=== PATIENT | female | born 1990 | race Asian ===

== ENCOUNTER 2018-11-01 05:36 | Inpatient (IN) | payer MEDICAID, OTHER ==
[2018-11-01 08:02] LABS: ADD UMIC YES; UR ASCORBIC ACID NEGATIVE (NEGATIVE); UR BILIRUBIN (Dip) NEGATIVE (NEGATIVE); UR BLOOD (Dip) 1+ mg/dL (NEGATIVE); UR CLARITY SLIGHTLY CLOUDY (CLEAR); UR COLOR YELLOW (YELLOW); UR GLUCOSE (Dip) 3+ mg/dL (NEGATIVE); UR KETONES (Dip) 2+ mg/dL (NEGATIVE); UR LEUKOCYTE ESTERASE (Dip) NEGATIVE Leu/ul (NEGATIVE); UR MUCUS FEW /HPF (NONE SEEN); UR NITRITE (Dip) NEGATIVE (NEGATIVE); UR RBC 1 /HPF (0-5); UR SPECIFIC GRAVITY (Dip) 1.026 (1.003-1.030); UR SQUAMOUS EPITHELIAL CELL FEW /HPF (FEW); UR TOTAL PROTEIN (Dip) 3+ mg/dl (NEGATIVE); UR UROBILINOGEN (Dip) NEGATIVE (NEGATIVE); UR WBC 2 /HPF (0-5)
[2018-11-01] MEDS: morphine 4 MG/ML VIAL IV ×2 (08:14→08:41)
[2018-11-01] MEDS: SODIUM CHLORIDE 0.9% 1L BAG IV* (08:14)
[2018-11-01] MEDS: ONDANSETRON 4 MG INJ IV ×2 (08:14→14:55)
[2018-11-01 08:31] LABS: MODE ROOM AIR; MetHgb Venous 0.1 %; Sample Type Blood venous; Site VENOUS LINE; Venous Fraction OxyHgb 63.1 %; Venous Oxygen Sat 63.8 mmHG (55.0-75.0); Venous Total Hemglobin 15.9 g/dl
[2018-11-01 08:35] LABS: ADD MAN DIFF? NO
[2018-11-01 08:38] LABS: WHITE BLOOD COUNT 25.8 10^3/ul (4.8-10.8)
[2018-11-01 08:38] LABS: ABNORMAL IP MESSAGE 1; BASOPHIL # 0.1 10^3/ul (0.0-0.1); BASOPHILS % 0.3 % (0.0-2.0); HEMATOCRIT 45.1 % (37.0-47.0); HEMOGLOBIN 14.2 g/dl (12.0-16.0); LYMPHOCYTES # 1.2 10^3/ul (0.8-2.9); LYMPHOCYTES % 4.5 % (15.0-51.0); MEAN CORPUSCULAR HEMOGLOBIN 27.9 pg (29.0-33.0); MEAN CORPUSCULAR HGB CONC 31.5 g/dl (32.0-37.0); MEAN CORPUSCULAR VOLUME 88.6 fl (82.0-101.0); MEAN PLATELET VOLUME 9.9 fl (7.4-10.4); MONOCYTE # 1.4 10^3/ul (0.3-0.9); MONOCYTES % 5.3 % (0.0-11.0); NEUTROPHIL # 22.7 10^3/ul (1.6-7.5); NEUTROPHILS % 87.8 % (39.0-77.0); PLATELET COUNT 426 10^3/UL (140-415); RED BLOOD COUNT 5.09 10^6/ul (4.20-5.40); RED CELL DISTRIBUTION WIDTH 11.7 % (11.5-14.5)
[2018-11-01 08:57] LABS: ALANINE AMINOTRANSFERASE 15 IU/L (13-69); ALBUMIN 4.8 g/dl (3.3-4.9); ALBUMIN/GLOBULIN RATIO 0.97; ALKALINE PHOSPHATASE 119 IU/L (42-121); ANION GAP 23 (5-13); ASPARTATE AMINO TRANSFERASE 13 IU/L (15-46); BILIRUBIN,INDIRECT 0.3 mg/dl (0-1.1); BILIRUBIN,TOTAL 0.3 mg/dl (0.2-1.3); BLOOD UREA NITROGEN 10 mg/dl (7-20); CALCIUM 9.6 mg/dl (8.4-10.2); CHLORIDE 105 mmol/L (97-110); CREATININE 0.69 mg/dl (0.44-1.00); Estimated GFR > 60 mL/min (>60); GLUCOSE 390 mg/dl (70-220); INR 1.01; MAGNESIUM 2.1 mg/dl (1.7-2.5); PHOSPHORUS 3.2 mg/dl (2.5-4.9); POTASSIUM 5.4 mmol/L (3.5-5.1); PROTIME 13.4 Sec (11.9-14.9); SODIUM 135 mmol/L (135-144); TOTAL PROTEIN 9.7 g/dl (6.1-8.1)
[2018-11-01 08:58] LABS: POSITIVE DIFF @See below
[2018-11-01] MEDS: LIDOCAINE 1% (MPF) 5 ML VIAL SC (09:00)
[2018-11-01 09:07] LABS: TROPONIN-I < 0.012 ng/ml (0.000-0.120)
[2018-11-01 09:09] LABS: CARBON DIOXIDE 7 mmol/L (21-31)
[2018-11-01] MEDS ORDERED: DEXTROSE 10%/0.45% NACL 1,000 ML IV (09:15)
[2018-11-01] MEDS ORDERED: D10/0.45% NACL + KCL 30 MEQ 1,000 ML IV (09:15)
[2018-11-01] MEDS ORDERED: NS + KCL 40 MEQ 1,000 ML IV ×2 (09:15→10:52)
[2018-11-01] MEDS ORDERED: D10/0.45% NACL + KCL 40 MEQ 1,000 ML IV ×2 (09:15→10:52)
[2018-11-01] MEDS: IOHEXOL 300MG/ML 150 ML BTL (09:18)
[2018-11-01] MEDS: SOD CHLORIDE 0.9% 0 ML (09:18)
[2018-11-01] MEDS ORDERED: DEXTROSE 50% 50 ML SYRINGE IV ×4 (09:30→11:00)
[2018-11-01 09:46] LABS: HEMOGLOBIN A1C 10.1 % (0-5.9)
[2018-11-01] MEDS: CEFEPIME 1GM/50 ML (PMX) 50 ML IVPB (10:10)
[2018-11-01] MEDS ORDERED: ONDANSETRON 4 MG INJ IV (10:30)
[2018-11-01] MEDS ORDERED: ACETAMINOPHEN 325 MG TAB PO (10:30)
[2018-11-01] MEDS ORDERED: SOD CHLORIDE 0.9% 1,000 ML IV (10:52)
[2018-11-01] MEDS ORDERED: NACL 0.9% 3 ML SYG IV (11:00)
[2018-11-01] MEDS: ACCU-CHEK XX ×13 (11:00→23:00)
[2018-11-01] MEDS ORDERED: VANCOMYCIN IV PER PHARMACY XX (11:30)
[2018-11-01 11:45] LABS: MODE ROOM AIR; MetHgb Venous 0.3 %; Sample Type Blood venous; Site VENOUS LINE; Venous COHb 1.3 %; Venous Oxygen Sat 91.5 mmHG (55.0-75.0); Venous Total Hemglobin 15.3 g/dl
[2018-11-01 12:22] LABS: LACTIC ACID 0.8 mmol/L (0.5-2.0)
[2018-11-01 12:23] LABS: ANION GAP 22 (5-13); BLOOD UREA NITROGEN 10 mg/dl (7-20); CALCIUM 9.1 mg/dl (8.4-10.2); CHLORIDE 109 mmol/L (97-110); CREATININE 0.51 mg/dl (0.44-1.00); Estimated GFR > 60 mL/min (>60); GLUCOSE 359 mg/dl (70-220); MAGNESIUM 2.1 mg/dl (1.7-2.5); POTASSIUM 4.8 mmol/L (3.5-5.1); SODIUM 138 mmol/L (135-144)
[2018-11-01 12:26] LABS: CARBON DIOXIDE 7 mmol/L (21-31)
[2018-11-01 13:17] LABS: ADD UMIC YES; UR ASCORBIC ACID NEGATIVE (NEGATIVE); UR BILIRUBIN (Dip) NEGATIVE (NEGATIVE); UR BLOOD (Dip) 1+ mg/dL (NEGATIVE); UR CLARITY CLEAR (CLEAR); UR COLOR STRAW (YELLOW); UR GLUCOSE (Dip) 3+ mg/dL (NEGATIVE); UR KETONES (Dip) 2+ mg/dL (NEGATIVE); UR LEUKOCYTE ESTERASE (Dip) NEGATIVE Leu/ul (NEGATIVE); UR MUCUS FEW /HPF (NONE SEEN); UR NITRITE (Dip) NEGATIVE (NEGATIVE); UR RBC 1 /HPF (0-5); UR TOTAL PROTEIN (Dip) 2+ mg/dl (NEGATIVE); UR UROBILINOGEN (Dip) NEGATIVE (NEGATIVE); UR WBC 0 /HPF (0-5)
[2018-11-01] MEDS: LACTATED RINGER'S 900 ML IV (13:46)
[2018-11-01] MEDS: VANCOMYCIN 1 GM (PMX) 250 ML IVPB (13:46)
[2018-11-01 13:57] LABS: MODE ROOM AIR; MetHgb Venous 0.3 %; Sample Type Blood venous; Site VENOUS LINE; Venous COHb 0.8 %; Venous Fraction OxyHgb 81.2 %; Venous Oxygen Sat 82.1 mmHG (55.0-75.0); Venous Total Hemglobin 14.5 g/dl
[2018-11-01] MEDS: SOD CHLORIDE 0.9% 1,000 ML IV (14:03)
[2018-11-01] MEDS: NS + KCL 30 MEQ 1,000 ML IV ×2 (14:09→22:34)
[2018-11-01] MEDS: INSULIN REGULAR, HUMAN 100 UNIT in SOD CHLORIDE 0.9% 100 ML IV ×2 (14:13→22:35)
[2018-11-01] MEDS: morphine 2 MG INJ IV ×2 (14:55→21:26)
[2018-11-01] MEDS: DEXTROSE 10%/0.45% NACL 1,000 ML IV (15:22)
[2018-11-01] MEDS: PIPER-TAZO 3.375 GM IV (PMX) 100 ML IVPB ×2 (16:06→19:46)
[2018-11-01 18:36] LABS: MODE ROOM AIR; MetHgb Venous 0.3 %; Sample Type Blood venous; Site VENOUS LINE; Venous COHb 0.3 %; Venous Fraction OxyHgb 82.4 %; Venous Oxygen Sat 82.9 mmHG (55.0-75.0); Venous Total Hemglobin 12.2 g/dl
[2018-11-01 19:38] LABS: LACTIC ACID 0.7 mmol/L (0.5-2.0)
[2018-11-01] MEDS: VANCOMYCIN 750 MG (PMX) 250 ML IVPB (19:51)
[2018-11-01 20:30] LABS: ANION GAP 11 (5-13); BLOOD UREA NITROGEN 6 mg/dl (7-20); CALCIUM 8.2 mg/dl (8.4-10.2); CARBON DIOXIDE 14 mmol/L (21-31); CHLORIDE 112 mmol/L (97-110); CREATININE 0.35 mg/dl (0.44-1.00); Estimated GFR > 60 mL/min (>60); GLUCOSE 274 mg/dl (70-220); MAGNESIUM 1.8 mg/dl (1.7-2.5); PHOSPHORUS 0.9 mg/dl (2.5-4.9); POTASSIUM 3.8 mmol/L (3.5-5.1); SODIUM 137 mmol/L (135-144)
[2018-11-01 21:15] LABS: MODE ROOM AIR; MetHgb Venous 0.3 %; Sample Type Blood venous; Site VENOUS LINE; Venous COHb 0.6 %; Venous Fraction OxyHgb 78.2 %; Venous Oxygen Sat 78.9 mmHG (55.0-75.0); Venous Total Hemglobin 12.9 g/dl
[2018-11-01] MEDS: FAMOTIDINE 20 MG INJ IV (21:26)
[2018-11-01] MEDS: D10/0.45% NACL + KCL 30 MEQ 1,000 ML IV (22:34)
[2018-11-01] MEDS: INSULIN GLARGINE [LANTus] (100 UNITS/ML) SYG SC (23:09)
[2018-11-02 00:06] LABS: ANION GAP 7 (5-13); BLOOD UREA NITROGEN 5 mg/dl (7-20); CARBON DIOXIDE 16 mmol/L (21-31); CHLORIDE 113 mmol/L (97-110); CREATININE 0.35 mg/dl (0.44-1.00); Estimated GFR > 60 mL/min (>60); GLUCOSE 269 mg/dl (70-220); MAGNESIUM 1.8 mg/dl (1.7-2.5); PHOSPHORUS 0.7 mg/dl (2.5-4.9); POTASSIUM 3.6 mmol/L (3.5-5.1); SODIUM 136 mmol/L (135-144)
[2018-11-02] MEDS: VANCOMYCIN 1.25 GM/NS 250 ML 250 ML IVPB ×3 (00:52→16:10)
[2018-11-02] MEDS: HYDROCODONE/APAP (5/325) TAB PO ×3 (00:54→20:16)
[2018-11-02] MEDS: ACCU-CHEK XX ×2 (01:00)
[2018-11-02] MEDS ORDERED: GLUCOSE GEL 15 GRAM TUBE PO ×2 (03:00)
[2018-11-02] MEDS ORDERED: GLUCOSE GEL 15 GRAM TUBE BUCCAL (03:00)
[2018-11-02] MEDS ORDERED: GLUCAGON 1 MG INJ IM (03:00)
[2018-11-02] MEDS ORDERED: DEXTROSE 50% 50 ML SYRINGE IV ×2 (03:00)
[2018-11-02] MEDS: SOD CHLORIDE 0.9% 500 ML IV (03:49)
[2018-11-02] MEDS: SOD CHLORIDE 0.9% 1,000 ML IV ×3 (04:30→22:42)
[2018-11-02] MEDS: PIPER-TAZO 3.375 GM IV (PMX) 100 ML IVPB ×5 (05:40→23:01)
[2018-11-02 06:01] LABS: ADD MAN DIFF? NO
[2018-11-02 06:33] LABS: ABNORMAL IP MESSAGE 1; BASOPHILS % 0.2 % (0.0-2.0); EOSINOPHILS % 0.1 % (0.0-7.0); HEMATOCRIT 30.1 % (37.0-47.0); HEMOGLOBIN 9.8 g/dl (12.0-16.0); LYMPHOCYTES # 1.4 10^3/ul (0.8-2.9); MEAN CORPUSCULAR HEMOGLOBIN 28.6 pg (29.0-33.0); MEAN CORPUSCULAR HGB CONC 32.6 g/dl (32.0-37.0); MEAN CORPUSCULAR VOLUME 87.8 fl (82.0-101.0); MONOCYTE # 1.7 10^3/ul (0.3-0.9); MONOCYTES % 9.4 % (0.0-11.0); NEUTROPHIL # 14.6 10^3/ul (1.6-7.5); NEUTROPHILS % 81.7 % (39.0-77.0); PLATELET COUNT 308 10^3/UL (140-415); RED BLOOD COUNT 3.43 10^6/ul (4.20-5.40); RED CELL DISTRIBUTION WIDTH 11.9 % (11.5-14.5)
[2018-11-02 06:33] LABS: WHITE BLOOD COUNT 17.9 10^3/ul (4.8-10.8)
[2018-11-02 06:39] LABS: POSITIVE DIFF @See below
[2018-11-02 07:21] LABS: ALANINE AMINOTRANSFERASE 12 IU/L (13-69); ALBUMIN 3.2 g/dl (3.3-4.9); ALBUMIN/GLOBULIN RATIO 0.96; ALKALINE PHOSPHATASE 84 IU/L (42-121); ANION GAP 12 (5-13); ASPARTATE AMINO TRANSFERASE 17 IU/L (15-46); BILIRUBIN,INDIRECT 0.5 mg/dl (0-1.1); BILIRUBIN,TOTAL 0.5 mg/dl (0.2-1.3); BLOOD UREA NITROGEN 6 mg/dl (7-20); CARBON DIOXIDE 14 mmol/L (21-31); CHLORIDE 111 mmol/L (97-110); CREATININE 0.41 mg/dl (0.44-1.00); Estimated GFR > 60 mL/min (>60); GLUCOSE 297 mg/dl (70-220); MAGNESIUM 1.9 mg/dl (1.7-2.5); PHOSPHORUS 1.3 mg/dl (2.5-4.9); POTASSIUM 3.7 mmol/L (3.5-5.1); SODIUM 137 mmol/L (135-144); TOTAL PROTEIN 6.5 g/dl (6.1-8.1)
[2018-11-02] MEDS: INSULIN ASPART [NOVOLOG] 3 ML PEN SC ×7 (08:00→20:29)
[2018-11-02] MEDS ORDERED: INSULIN ASPART [NOVOLOG] 3 ML PEN SC (08:00)
[2018-11-02] MEDS: FAMOTIDINE 20 MG INJ IV (09:05)
[2018-11-02 10:44] LABS: ACETONE POSITIVE-MODERATE (NEGATIVE)
[2018-11-02 11:28] LABS: MODE ROOM AIR; MetHgb Venous 0.1 %; Sample Type Blood venous; Site VENOUS LINE; Venous COHb 0.6 %; Venous Fraction OxyHgb 93.2 %; Venous Oxygen Sat 93.9 mmHG (55.0-75.0); Venous Total Hemglobin 12.2 g/dl
[2018-11-02] MEDS: INSULIN GLARGINE [LANTus] (100 UNITS/ML) SYG SC ×2 (11:33→20:22)
[2018-11-02 11:54] LABS: ALBUMIN 3.2 g/dl (3.3-4.9); ANION GAP 8 (5-13); BLOOD UREA NITROGEN 7 mg/dl (7-20); CALCIUM 8.3 mg/dl (8.4-10.2); CARBON DIOXIDE 16 mmol/L (21-31); CHLORIDE 111 mmol/L (97-110); CREATININE 0.38 mg/dl (0.44-1.00); GLUCOSE 294 mg/dl (70-220); PHOSPHORUS 0.9 mg/dl (2.5-4.9); POTASSIUM 3.5 mmol/L (3.5-5.1); SODIUM 135 mmol/L (135-144)
[2018-11-02] MEDS: NEUTRA-PHOS 250 MG PACKET PO (13:08)
[2018-11-02] MEDS: morphine 2 MG INJ IV (14:15)
[2018-11-02 15:47] LABS: VANCOMYCIN,TROUGH 9.8 ug/ml (10.0-20.0)
[2018-11-02] MEDS: FAMOTIDINE 20 MG TAB PO (20:16)
[2018-11-02] MEDS: VANCOMYCIN 1.5 GM/NS 250 ML 250 ML IVPB (23:25)
[2018-11-03] MEDS: ACCU-CHEK XX (02:12)
[2018-11-03] MEDS: SOD CHLORIDE 0.9% 1,000 ML IV ×2 (03:00→07:46)
[2018-11-03] MEDS: PIPER-TAZO 3.375 GM IV (PMX) 100 ML IVPB ×4 (04:13→23:57)
[2018-11-03] MEDS: morphine 2 MG INJ IV (04:13)
[2018-11-03 06:53] LABS: UR KETONES (Dip) 1+ mg/dL (NEGATIVE)
[2018-11-03] MEDS: VANCOMYCIN 1.5 GM/NS 250 ML 250 ML IVPB ×2 (07:49→16:18)
[2018-11-03] MEDS: INSULIN ASPART [NOVOLOG] 3 ML PEN SC ×7 (08:09→20:56)
[2018-11-03] MEDS: FAMOTIDINE 20 MG TAB PO ×2 (08:40→20:42)
[2018-11-03 11:26] LABS: ADD MAN DIFF? NO
[2018-11-03 11:31] LABS: BASOPHILS % 0.3 % (0.0-2.0); EOSINOPHILS # 0.1 10^3/ul (0.0-0.5); EOSINOPHILS % 0.6 % (0.0-7.0); HEMATOCRIT 30.2 % (37.0-47.0); LYMPHOCYTES # 1.9 10^3/ul (0.8-2.9); LYMPHOCYTES % 16.3 % (15.0-51.0); MEAN CORPUSCULAR HEMOGLOBIN 28.2 pg (29.0-33.0); MEAN CORPUSCULAR HGB CONC 33.1 g/dl (32.0-37.0); MEAN CORPUSCULAR VOLUME 85.1 fl (82.0-101.0); MEAN PLATELET VOLUME 10.2 fl (7.4-10.4); MONOCYTE # 1.3 10^3/ul (0.3-0.9); MONOCYTES % 11.6 % (0.0-11.0); NEUTROPHIL # 8.2 10^3/ul (1.6-7.5); NEUTROPHILS % 70.7 % (39.0-77.0); PLATELET COUNT 297 10^3/UL (140-415); RED BLOOD COUNT 3.55 10^6/ul (4.20-5.40); RED CELL DISTRIBUTION WIDTH 11.9 % (11.5-14.5)
[2018-11-03 11:31] LABS: WHITE BLOOD COUNT 11.6 10^3/ul (4.8-10.8)
[2018-11-03 11:52] LABS: ALANINE AMINOTRANSFERASE 23 IU/L (13-69); ALBUMIN 2.9 g/dl (3.3-4.9); ALBUMIN/GLOBULIN RATIO 0.82; ALKALINE PHOSPHATASE 72 IU/L (42-121); ANION GAP 7 (5-13); BILIRUBIN,INDIRECT 0.3 mg/dl (0-1.1); BILIRUBIN,TOTAL 0.3 mg/dl (0.2-1.3); BLOOD UREA NITROGEN 5 mg/dl (7-20); CARBON DIOXIDE 24 mmol/L (21-31); CHLORIDE 109 mmol/L (97-110); CREATININE 0.31 mg/dl (0.44-1.00); Estimated GFR > 60 mL/min (>60); GLUCOSE 190 mg/dl (70-220); SODIUM 140 mmol/L (135-144); TOTAL PROTEIN 6.4 g/dl (6.1-8.1)
[2018-11-03 11:56] LABS: ASPARTATE AMINO TRANSFERASE 18 IU/L (15-46); CALCIUM 8.1 mg/dl (8.4-10.2)
[2018-11-03] MEDS: POTASSIUM PHOSPHATE 40 MEQ in SOD CHLORIDE 0.9% 250 ML IVPB (11:56)
[2018-11-03 12:01] LABS: POTASSIUM 2.8 mmol/L (3.5-5.1)
[2018-11-03] MEDS: POTASSIUM CHLORIDE (SR) 20 MEQ TAB PO (12:33)
[2018-11-03] MEDS: HYDROCODONE/APAP (5/325) TAB PO (20:42)
[2018-11-03] MEDS: INSULIN GLARGINE [LANTus] (100 UNITS/ML) SYG SC (20:46)
[2018-11-03 23:46] LABS: VANCOMYCIN,TROUGH 10.1 ug/ml (10.0-20.0)
[2018-11-04] MEDS: VANCOMYCIN 1.5 GM/NS 250 ML 250 ML IVPB ×4 (01:01→23:27)
[2018-11-04] MEDS: ACCU-CHEK XX (02:00)
[2018-11-04] MEDS: PIPER-TAZO 3.375 GM IV (PMX) 100 ML IVPB ×2 (05:40→12:00)
[2018-11-04 06:11] LABS: ADD MAN DIFF? NO
[2018-11-04 06:25] LABS: WHITE BLOOD COUNT 9.5 10^3/ul (4.8-10.8)
[2018-11-04 06:25] LABS: BASOPHILS % 0.4 % (0.0-2.0); EOSINOPHILS # 0.2 10^3/ul (0.0-0.5); EOSINOPHILS % 1.6 % (0.0-7.0); HEMATOCRIT 31.5 % (37.0-47.0); HEMOGLOBIN 10.5 g/dl (12.0-16.0); LYMPHOCYTES # 2.5 10^3/ul (0.8-2.9); MEAN CORPUSCULAR HEMOGLOBIN 28.1 pg (29.0-33.0); MEAN CORPUSCULAR HGB CONC 33.3 g/dl (32.0-37.0); MEAN CORPUSCULAR VOLUME 84.2 fl (82.0-101.0); MEAN PLATELET VOLUME 9.9 fl (7.4-10.4); NEUTROPHIL # 5.8 10^3/ul (1.6-7.5); NEUTROPHILS % 61.3 % (39.0-77.0); PLATELET COUNT 317 10^3/UL (140-415); RED BLOOD COUNT 3.74 10^6/ul (4.20-5.40); RED CELL DISTRIBUTION WIDTH 11.9 % (11.5-14.5)
[2018-11-04 06:45] LABS: ANION GAP 7 (5-13); BLOOD UREA NITROGEN 5 mg/dl (7-20); CALCIUM 8.3 mg/dl (8.4-10.2); CARBON DIOXIDE 25 mmol/L (21-31); CHLORIDE 107 mmol/L (97-110); Estimated GFR > 60 mL/min (>60); GLUCOSE 194 mg/dl (70-220); MAGNESIUM 2.1 mg/dl (1.7-2.5); SODIUM 139 mmol/L (135-144)
[2018-11-04] MEDS: FAMOTIDINE 20 MG TAB PO ×2 (08:06→20:40)
[2018-11-04] MEDS: INSULIN ASPART [NOVOLOG] 3 ML PEN SC ×7 (08:43→20:53)
[2018-11-04] MEDS: POTASSIUM PHOSPHATE 40 MEQ in SOD CHLORIDE 0.9% 250 ML IVPB (11:42)
[2018-11-04] MEDS: POTASSIUM CHLORIDE (SR) 20 MEQ TAB PO (12:00)
[2018-11-04] MEDS: MUPIROCIN 2% 22 GM OINT TOP ×2 (13:45→20:40)
[2018-11-04] MEDS: CEFTRIAXONE 1 GM/50 ML (PMX) 50 ML IVPB (16:05)
[2018-11-04] MEDS: RIFAMPIN 300 MG CAP PO (17:30)
[2018-11-04] MEDS: HYDROCODONE/APAP (5/325) TAB PO (20:40)
[2018-11-04] MEDS: INSULIN GLARGINE [LANTus] (100 UNITS/ML) SYG SC (21:14)
[2018-11-05] MEDS: ACCU-CHEK XX (02:10)
[2018-11-05] MEDS: MUPIROCIN 2% 22 GM OINT TOP ×2 (08:09→23:33)
[2018-11-05] MEDS: FAMOTIDINE 20 MG TAB PO ×2 (08:10→20:54)
[2018-11-05] MEDS: RIFAMPIN 300 MG CAP PO (08:10)
[2018-11-05] MEDS: VANCOMYCIN 1.5 GM/NS 250 ML 250 ML IVPB ×3 (08:10→23:33)
[2018-11-05] MEDS: INSULIN ASPART [NOVOLOG] 3 ML PEN SC ×7 (08:38→21:00)
[2018-11-05] MEDS ORDERED: LIDOCAINE 1% (MPF) 30 ML INJ (12:28)
[2018-11-05] MEDS ORDERED: LIDOCAINE 1%/EPI (MDV) 50 ML INJ INJ (13:16)
[2018-11-05] MEDS: LIDOCAINE 1% (MPF) 30 ML INJ INJ (13:23)
[2018-11-05] MEDS: metFORMIN 500 MG TAB PO (17:36)
[2018-11-05] MEDS: HYDROCODONE/APAP (5/325) TAB PO (20:54)
[2018-11-05] MEDS: INSULIN GLARGINE [LANTus] (100 UNITS/ML) SYG SC (21:02)
[2018-11-06] MEDS: ACCU-CHEK XX (02:31)
[2018-11-06 07:47] LABS: ANION GAP 7 (5-13); BLOOD UREA NITROGEN 10 mg/dl (7-20); CALCIUM 8.3 mg/dl (8.4-10.2); CARBON DIOXIDE 30 mmol/L (21-31); CHLORIDE 105 mmol/L (97-110); CREATININE 0.34 mg/dl (0.44-1.00); GLUCOSE 211 mg/dl (70-220); MAGNESIUM 1.7 mg/dl (1.7-2.5); PHOSPHORUS 3.5 mg/dl (2.5-4.9); POTASSIUM 3.4 mmol/L (3.5-5.1); SODIUM 142 mmol/L (135-144)
[2018-11-06] MEDS: RIFAMPIN 300 MG CAP PO (08:10)
[2018-11-06] MEDS: metFORMIN 500 MG TAB PO ×2 (08:10→17:28)
[2018-11-06] MEDS: FAMOTIDINE 20 MG TAB PO ×2 (08:10→20:33)
[2018-11-06] MEDS: LINAGLIPTIN 5 MG TABLET PO (08:10)
[2018-11-06] MEDS: INSULIN ASPART [NOVOLOG] 3 ML PEN SC ×7 (08:17→20:33)
[2018-11-06] MEDS: VANCOMYCIN 1.5 GM/NS 250 ML 250 ML IVPB ×2 (08:37→16:53)
[2018-11-06] MEDS: MUPIROCIN 2% 22 GM OINT TOP ×2 (08:38→21:00)
[2018-11-06] MEDS ORDERED: ALLOPURINOL 100 MG TAB (08:41)
[2018-11-06] MEDS: POTASSIUM CHLORIDE (SR) 20 MEQ TAB PO (10:27)
[2018-11-06] MEDS: INSULIN GLARGINE [LANTus] (100 UNITS/ML) SYG SC (20:33)
[2018-11-06] MEDS: ACETAMINOPHEN 325 MG TAB PO (22:15)
[2018-11-07 00:15] LABS: VANCOMYCIN,TROUGH 13.2 ug/ml (10.0-20.0)
[2018-11-07] MEDS: VANCOMYCIN 1.5 GM/NS 250 ML 250 ML IVPB ×2 (00:34→08:43)
[2018-11-07] MEDS: ACCU-CHEK XX (02:00)
[2018-11-07 07:22] LABS: ADD MAN DIFF? NO
[2018-11-07 07:31] LABS: WHITE BLOOD COUNT 8.6 10^3/ul (4.8-10.8)
[2018-11-07 07:32] LABS: BASOPHILS % 0.4 % (0.0-2.0); EOSINOPHILS # 0.2 10^3/ul (0.0-0.5); EOSINOPHILS % 2.7 % (0.0-7.0); HEMATOCRIT 33.1 % (37.0-47.0); HEMOGLOBIN 10.7 g/dl (12.0-16.0); LYMPHOCYTES # 2.5 10^3/ul (0.8-2.9); LYMPHOCYTES % 29.1 % (15.0-51.0); MEAN CORPUSCULAR HGB CONC 32.3 g/dl (32.0-37.0); MEAN CORPUSCULAR VOLUME 86.6 fl (82.0-101.0); MEAN PLATELET VOLUME 9.8 fl (7.4-10.4); MONOCYTE # 0.8 10^3/ul (0.3-0.9); MONOCYTES % 9.4 % (0.0-11.0); NEUTROPHIL # 4.8 10^3/ul (1.6-7.5); NEUTROPHILS % 56.5 % (39.0-77.0); PLATELET COUNT 407 10^3/UL (140-415); RED BLOOD COUNT 3.82 10^6/ul (4.20-5.40)
[2018-11-07] MEDS: LINAGLIPTIN 5 MG TABLET PO (08:43)
[2018-11-07] MEDS: RIFAMPIN 300 MG CAP PO (08:43)
[2018-11-07] MEDS: FAMOTIDINE 20 MG TAB PO (08:43)
[2018-11-07] MEDS: metFORMIN 500 MG TAB PO (08:43)
[2018-11-07] MEDS: INSULIN ASPART [NOVOLOG] 3 ML PEN SC ×4 (08:45→12:34)
[2018-11-07] MEDS: MUPIROCIN 2% 22 GM OINT TOP (09:06)
[2018-11-07] MEDS: COLLAGENASE 5 GM (UD JAR) TOP (10:00)
== END 2018-11-07 15:07 | disposition home health service (06) | DRG 853 ==
LOC: E/R 05:36 → TEL 10:14 → PP2 11-06 15:35
PROVIDERS: Internal Medicine
PROC: 0W960ZZ Drainage of Neck, Open Approach (ICD-10-PCS; principal; 2018-11-05)
PROC: 02H633Z Insertion of Infusion Device into Right Atrium, Percutaneous Approach (ICD-10-PCS; 2018-11-05)
PROC: B244ZZZ Ultrasonography of Right Heart (ICD-10-PCS; 2018-11-05)
DX: A41.9 Sepsis, unspecified organism (principal); E11.10 Type 2 diabetes mellitus with ketoacidosis without coma; L02.11 Cutaneous abscess of neck; L03.221 Cellulitis of neck; R53.1 Weakness; E66.9 Obesity, unspecified; Z68.33 Body mass index [BMI] 33.0-33.9, adult; E87.5 Hyperkalemia; B95.62 Methicillin resistant Staphylococcus aureus infection as the cause of diseases classified elsewhere; Z22.322 Carrier or suspected carrier of Methicillin resistant Staphylococcus aureus
CPT/HCPCS: 36415; 70490; 71045; 76536; 76937; 80048; 80053; 80069; 80202; 81001; 81005; 81025; 82010; 82803; 82962; 83036; 83605; 83735; 84100; 84484; 85025; 85610; 87040-91; 87070; 87081; 93005; 96374; 96375; 96376; 99285-25